=== PATIENT | female | born 1950 | race Caucasian/White ===

== ENCOUNTER 2016-04-13 10:38 | Inpatient (IN) | payer BC, MEDICARE ==
[~2016-04-13] VITALS: Ht 157.5 cm; Wt 59.0 kg
[~2016-04-13 10:38] MED LIST: MELO-109 PO
[2016-04-15 17:40] VITALS: BMI 23.8
[2016-04-18] VITALS (23 sets, daily range): BP systolic 101–134; BP diastolic 46–71; PULSE 88–109; RESP 11–59; Ht 157.5 cm; Wt 59.0 kg
[2016-04-18] MEDS ORDERED: GLUC-137 PO (11:46)
[2016-04-18] MEDS ORDERED: CALC-176 PO (11:46)
[2016-04-18] MEDS ORDERED: UBID1CAP25 PO (11:46)
[2016-04-18] MEDS ORDERED: MULT-853 PO (11:46)
[2016-04-18] MEDS ORDERED: OMEG300C3 PO (11:46)
[2016-04-18] MEDS ORDERED: FENTAnyl 50 MCG/ML VIAL ONE (12:00)
[2016-04-18] MEDS ORDERED: MIDAZOLAM 1 MG/ML 2 ML INJ ONE (12:00)
[2016-04-18] MEDS ORDERED: BUPIVACAINE 0.25%/EPI (SDV) 30 ML INJ ONE (12:01)
[2016-04-18] MEDS ORDERED: ROPIVACAINE 0.5 % 30 ML VIAL ONE ×2 (12:01→15:29)
[2016-04-18] MEDS ORDERED: POLYMYXIN/BACITRACIN 1L IRRIG ONE ×2 (12:08→15:29)
[2016-04-18] MEDS ORDERED: hydrALAzine 20 MG INJ ONE (13:05)
[2016-04-18] MEDS ORDERED: morphine 10 MG INJ ONE ×2 (13:05→16:25)
[2016-04-18] MEDS ORDERED: HYDROmorphONE (0.2 MG/ML) 10ML SYG IV PRN ×2 (13:30)
[2016-04-18] MEDS ORDERED: METOCLOPRAMIDE 10 MG INJ IV PRN (13:30)
[2016-04-18] MEDS ORDERED: MEPERIDINE 25 MG INJ IV PRN (13:30)
[2016-04-18] MEDS ORDERED: ONDANSETRON 4 MG INJ IV PRN ×2 (13:30→17:00)
[2016-04-18] MEDS ORDERED: FENTAnyl 50 MCG/ML VIAL IV PRN (13:30)
[2016-04-18] MEDS ORDERED: DIPHENHYDRAMINE 50 MG INJ IV PRN (13:30)
[2016-04-18] MEDS ORDERED: NALOXONE (0.4 MG/ML) INJ IV PRN (13:30)
[2016-04-18] MEDS ORDERED: POVIDONE IODINE 10% 28.4 GM OINT ONE (15:29)
[2016-04-18] MEDS ORDERED: ONDANSETRON 4 MG INJ ONE (16:07)
[2016-04-18] MEDS ORDERED: KETOROLAC 30 MG INJ ONE (16:08)
[2016-04-18] MEDS ORDERED: LIDOCAINE 2% (SDV) 5 ML INJ ONE (16:09)
[2016-04-18] MEDS ORDERED: PROPOFOL 20 ML ONE (16:09)
[2016-04-18] MEDS ORDERED: ROCURONIUM 50 MG INJ ONE (16:09)
--- NOTE | 2016-04-18 16:40 | OPPN ---
Date/Time of Note Date/Time of Note DATE: 04/18/16 TIME: 16:38 Operative/Procedure Note Pre-Operative Diagnosis right distal tibial pilon and distal fibula fracture Post-Operative Diagnosis right distal tibial pilon and distal fibula fracture Procedure ORIF right distal tibial pilon and distal fibula fracture with allograft Use of fluoroscopy Application of short leg cast Surgeon: JULES HINOJOSA MD [employer]: JYOTI SANTOS MD Anesthesiologist: FREIDA HAWKINS MD Implants/Grafts Allograft and Winifred Vitoss with bioactive glass Estimated blood loss: 10 - 50 ml's Drains: Not applicable Specimens: Not Applicable Complications: None Anesthesia type: regional (general Plus popliteal and adductor regional block) JULES HINOJOSA MD Apr 18, 2016 16:40
[2016-04-18] MEDS ORDERED: CEFAZOLIN 1 GM INJ IV SCH (17:00)
[2016-04-18] MEDS ORDERED: DIPHENHYDRAMINE 25 MG CAP PO PRN (17:00)
[2016-04-18] MEDS ORDERED: morphine 10 MG INJ IV PRN (17:00)
[2016-04-18] MEDS ORDERED: OXYCODONE/ACETAMINOPHEN (5/325) TAB PO PRN (17:00)
--- NOTE | 2016-04-18 17:33 | RADRPT ---
PROCEDURE: Intraoperative imaging of the right ankle with fluoroscopy. CLINICAL INDICATION: Right ankle pain. Intraoperative. TECHNIQUE: 10 images of the right ankle were obtained in the operating room with an image intensif ier. No radiologist was in attendance. 1.1 minutes of fluoroscopy time was used. COMPARISON: No prior study is available for comparison. FINDINGS: Images demonstrate open reduction and internal fixation of the distal tibia with 2 plates and multip le screws. There is also open reduction and internal fixation of the distal fibula with a lateral p late and multiple screws. IMPRESSION: 1. Intraoperative imaging of the right ankle. RPTAT: QQ .Rinku Paredes MD, MD Date Time Electronically viewed and signed by .Rinku Paredes MD, MD on 04/18/2016 17:33 .R/
[2016-04-18] MEDS: morphine 1 MG/ML 30 ML (PCA) IV SCH (17:54)
[2016-04-18] MEDS: CEFAZOLIN 1 GM/50 ML (PMX) 50 ML IVPB SCH (18:02)
[2016-04-18 19:25] LABS: BASOPHILS % 0.2 % (0.0-2.0); EOSINOPHILS % 0.1 % (0.0-7.0); HEMATOCRIT 30.9 % (37.0-47.0); HEMOGLOBIN 10.3 g/dl (12.0-16.0); LYMPHOCYTES # 0.5 10^3/ul (0.8-2.9); LYMPHOCYTES % 7.2 % (15.0-51.0); MEAN CORPUSCULAR HEMOGLOBIN 28.7 pg (29.0-33.0); MEAN CORPUSCULAR HGB CONC 33.5 g/dl (32.0-37.0); MEAN CORPUSCULAR VOLUME 85.9 fl (82.0-101.0); MEAN PLATELET VOLUME 8.2 fl (7.4-10.4); MONOCYTE # 0.5 10^3/ul (0.3-0.9); MONOCYTES % 7.3 % (0.0-11.0); NEUTROPHIL # 6.3 10^3/ul (1.6-7.5); NEUTROPHILS % 85.2 % (39.0-77.0); PLATELET COUNT 259 10^3/UL (140-440); RED BLOOD COUNT 3.59 10^6/ul (4.20-5.40); RED CELL DISTRIBUTION WIDTH 14.1 % (11.5-14.5); UNCORRECTED WBC 7.4 10^3/ul (4.8-10.8); WHITE BLOOD COUNT 7.4 10^3/ul (4.8-10.8)
[2016-04-18 19:29] LABS: CONDITION 1
[2016-04-18 19:35] LABS: ALBUMIN 3.5 g/dl (3.3-4.9); CHLORIDE 101 mmol/L (97-110); POTASSIUM 3.7 mmol/L (3.5-5.1); SODIUM 142 mmol/L (135-144)
[2016-04-18 19:37] LABS: ANION GAP 17 (8-16); ASPARTATE AMINO TRANSFERASE 22 IU/L (15-46); BILIRUBIN,INDIRECT 0.1 mg/dl (0-1.1); BILIRUBIN,TOTAL 0.1 mg/dl (0.2-1.3); CARBON DIOXIDE 28 mmol/L (21-31); CREATININE 0.59 mg/dl (0.44-1.00)
[2016-04-18 19:38] LABS: ALANINE AMINOTRANSFERASE 24 IU/L (13-69); ALBUMIN/GLOBULIN RATIO 1.29; ALKALINE PHOSPHATASE 108 IU/L (42-121); BLOOD UREA NITROGEN 21 mg/dl (7-20); CALCIUM 8.8 mg/dl (8.4-10.2); GLUCOSE 139 mg/dl (70-220); TOTAL PROTEIN 6.2 g/dl (6.1-8.1)
[2016-04-19 00:21] VITALS: BP 117/60; RESP 20
[2016-04-19] MEDS: CEFAZOLIN 1 GM/50 ML (PMX) 50 ML IVPB SCH ×3 (02:03→17:14)
[2016-04-19 04:45] VITALS: BP 119/64; PULSE 95
[2016-04-19] MEDS: morphine 1 MG/ML 30 ML (PCA) IV SCH (06:22)
[2016-04-19] MEDS ORDERED: oxyCODONE 5 MG TAB PO PRN (07:00)
[2016-04-19] MEDS ORDERED: ACETAMINOPHEN 325 MG TAB PO PRN (07:00)
--- NOTE | 2016-04-19 07:08 | PN ---
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 No f/v/c/n Denies numbness or tingling Constitutional: improved Feeding: advancing diet Pain Control: well controlled Exam/Review of Systems Vital Signs Vitals Vital Signs Date Time Temp Pulse Resp B/P Pulse Ox O2 Delivery O2 Flow Rate FiO2 04/19/16 04:49 17 04/19/16 04:45 98.0 95 119/64 99 Nasal Cannula 2.0 Intake and Output 04/18/16 04/18/16 04/19/16 15:00 23:00 07:00 Intake Total 1200 ml 350 ml Output Total 100 ml 400 ml Balance 1100 ml -50 ml Exam Constitutional: alert, oriented, well developed Psych: nl mood/affect, no complaints Musculoskeletal: other (RLE/ cast intact, toes wiggle silt to exposed toes. able to fit one to finger around border of the cast prox and distal) Results Result Diagram: 04/18/16184104/18/161841 JULES HINOJOSA MD Apr 19, 2016 07:08
--- NOTE | 2016-04-19 07:37 | CONS ---
DATE OF ADMISSION: 04/19/2016 DATE OF CONSULTATION: 04/19/2016 TIME SEEN: 3 a.m. HISTORY OF PRESENT ILLNESS: The patient is a 65-year-old female with a history of right knee osteoa rthritis status post total knee arthroplasty in 2012 who unfortunately had a right distal tibia and fibula fracture after a skiing accident and already underwent ORIF with allograft. A consultation w as placed for medical management. Except for the intermittent pain, overall the patient is feeling well. Denied any chest pain, shortness of breath, nausea, vomiting, fever or chills. Except for ta chycardia which has been getting better, vitals have been stable. Laboratory value shows a hemoglob in of 10.3 which is actually better than the previous record that we have here. REVIEW OF SYSTEMS: Negative except as mentioned in HPI. PAST MEDICAL HISTORY: As per HPI. PAST SURGICAL HISTORY: As per HPI. SOCIAL HISTORY: Denied history of tobacco, alcohol, or illicit drug use. ALLERGIES: NO KNOWN DRUG ALLERGIES. HOME MEDICATIONS: 1. Meloxicam. 2. Calcium. 3. Glucosamine/chondroitin. 4. Centrum Silver Woman. 5. Guin 3 fatty acid. 6. CoQ10. PHYSICAL EXAMINATION: VITAL SIGNS: Blood pressure 117/60, heart rate 102, respiratory rate 20, temperature 99.5, oxygen s aturation 97% on 2 liters. GENERAL: Sleepy but arousable. No acute distress. HEENT: No obvious head deformity. Pupils reactive to light. Extraocular muscles intact. CARDIOVASCULAR: Tachycardic with regular rhythm. LUNGS: Clear. ABDOMEN: Soft, nontender, nondistended. Positive bowel sounds. EXTREMITIES: Right lower extremity surgical site is covered. LABORATORY DATA: Hemoglobin 10.3, BUN 21. Otherwise, CBC and CMP within normal limits. IMPRESSION: 1. Right distal tibia and fibula fracture, status post open reduction internal fixation. 2. History of right knee osteoarthritis, status post total knee arthroplasty in 2012. 3. Normocytic anemia, likely a combination of chronic disease and possible iron deficiency PLAN: Continue pain management with adjustment as needed. When cleared by surgery will have physic al therapy. As far as her anemia is concerned, it is actually better than the previous record that we have and currently patient takes iron as part of her Centrum Silver. This can be addressed by [facility] primary care doctor as far as checking her iron profile is concerned. Further workup and management will be per clinical course. Dictated By: JOHN SELLERS/ACE Conf#: [id number] DID#: [id number]
[2016-04-19 08:05] VITALS: BP 119/60; RESP 16
[2016-04-19] MEDS: oxyCODONE 5 MG TAB PO PRN ×4 (09:23→21:00)
--- NOTE | 2016-04-19 15:08 | HP ---
Date/Time of Note Date/Time of Note DATE: 04/19/16 TIME: 14:56 Assessment/Plan VTE Prophylaxis VTE Prophylaxis Intervention: other (xarelto) Lines/Catheters IV Catheter Type (from Nrs): Peripheral IV Assessment/Plan Assessment/Plan 1. Right distal tibia and fibula fracture, status post open reduction internal fixation, 04/18/2016, stable, NWB on RLE, follow up with PT/ortho 2. History of right knee osteoarthritis, status post total knee arthroplasty in 2012. 3. Normocytic anemia, mild, follow up with CBC HPI/ROS Admit Date/Time Admit Date/Time Apr 19, 2016 at 07:01 Hx of Present Illness he patient is a 65-year-old female with a history of right knee osteoarthritis status post total knee arthroplasty in 2012 who unfortunately had a right distal tibia and fibula fracture after a skiing accident. She got ORIF with allograft on 04/19/2016, without complication. She has pain on right leg. Some nausea but no vomiting. ROS Constitutional: nausea, No chills, No diaphoresis, No disoriented, No fatigue, No febrile, No poor po , No weight change Eyes: No discharge, No pain, No redness, No visual change ENT: No bleeding, No congestion, No discharge, No dysphagia, No pain, No sore throat Respiratory: No cough, No pain, No pleuritic pain, No shortness of breath, No sputum, No wheezing Cardiovascular: No chest pain, No edema, No lightheadedness, No orthopenea, No palpitations, No paroxysmal nocturnal dyspnea Gastrointestinal: No blood, No constipation, No decreased appetite, No diarrhea , No flatus, No nausea, No pain, No passing stool, No vomiting Genitourinary: other, No bleeding, No discharge, No dysuria, No flank pain, No hematuria Musculoskeletal: other (right leg pain) Neurologic: No confusion, No dizziness, No focal-weakness, No headache, No seizure, No syncope Endocrine: No dry skin, No polydypsia, No polyuria, No temp intolerance, No weight change Lymphatic: No adenopathy, No lymphadema, No tender nodes Psychological: nl mood/affect, no complaints, No anxiety, No confusion, No depression, No other, No suicidal Immunologic: no complaints PMH/Family/Social Past Medical History Medical History: other (osteoarthritis) Past Surgical History Past Surgical Hx: other (right knee replacement) Social History Alcohol Use: none Smoking Status: Former smoker Drug Use: none Exam/Review of Systems Vital Signs Vitals Vital Signs Date Time Temp Pulse Resp B/P Pulse Ox O2 Delivery O2 Flow Rate FiO2 04/19/16 11:46 98.5 04/19/16 08:05 88 16 119/60 98 04/19/16 08:00 2.0 04/19/16 04:45 Nasal Cannula Intake and Output 04/18/16 04/18/16 04/19/16 15:00 23:00 07:00 Intake Total 1200 ml 350 ml Output Total 100 ml 400 ml Balance 1100 ml -50 ml Exam Constitutional: alert, oriented, well developed Psych: nl mood/affect, no complaints Head: atraumatic, normocephalic Eyes: EOMI, nl conjunctiva, nl lids, nl sclera ENMT: mucosa pink and moist, nl external ears & nose, nl lips & teeth, nl nasal mucosa & septum Neck: non-tender, supple Respiratory: clear to auscultation, normal air movement, other, No congested cough, No crackles/rales, No diminished breath sounds, No intercostal retraction, No labored breathing, No respirations, No tactile fremitus, No wheezing Cardiovascular: nl pulses, regular rate and rhythm, No S3, No S4, No bruits, No diastolic murmur, No edema, No gallop, No irregular rhythm, No jugular venous distention (JVD), No murmurs/extra sounds, No rub, No systolic murmur Gastrointestinal: bowel sounds, nl liver, spleen, soft, No ascites, No distended, No firm, No hepatomegaly, No mass, No non-tender, No rebound or guarding, No splenomegaly, No surgical scars, No tender Extremities: normal pulses, other (right lower extremity surgery, pain) 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, nl mental status, nl speech, nl strength Skin: nl turgor Lymph: nl lymph nodes Labs Result Diagram: 04/18/16184104/18/161841 Medications Medications Current Medications Naloxone HCl (Narcan) 0.2 mg Q2M PRN IV FOR RESP RATE 8 OR LESS; Start at 13:30 Morphine Sulfate (morphine) 5 mg Q4H PRN IV PAIN LEVEL 7-10; Start 04/18/16 at 17:00 Ondansetron HCl (Zofran Inj) 4 mg Q4H PRN IV NAUSEA AND/OR VOMITING Last administered on 04/19/16 09:37; Admin Dose 4 MG; Start 04/18/16 at 17:00 Diphenhydramine HCl 25 mg 25 mg Q4H PRN PO ITCHING; Start 04/18/16 at 17:00 Cefazolin Sodium (Ancef 1 Gm/50 ml (Pmx)) 50 ml @ 100 mls/hr Q8H IVPB Last administered on 04/19/16 09:24; Admin Dose 100 MLS/HR; Start 04/18/16 at 18:00 ; Stop 04/20/16 at 10:29 Acetaminophen (Tylenol Tab) 325 mg Q6H PRN PO PAIN AND OR ELEVATED TEMP Last administered on 04/19/16 09:23; Admin Dose 325 MG; Start 04/19/16 at 07:00 Oxycodone HCl (Roxicodone) 5 mg Q4H PRN PO PAIN Last administered on 04/19/16 12:42; Admin Dose 5 MG; Start 04/19/16 at 07:30 Oxycodone HCl (Roxicodone) 10 mg Q4H PRN PO PAIN; Start 04/19/16 at 13:00 CRISTIANE GARCIA MD Apr 19, 2016 15:07
[2016-04-19] MEDS: RIVAROXABAN 10 MG TABLET PO SCH (17:14)
[2016-04-19 19:57] VITALS: BP 139/68; RESP 19
[2016-04-20] MEDS: oxyCODONE 5 MG TAB PO PRN ×6 (01:01→22:22)
[2016-04-20] MEDS: CEFAZOLIN 1 GM/50 ML (PMX) 50 ML IVPB SCH ×2 (01:56→09:13)
[2016-04-20 05:26] LABS: BASOPHILS % 0.2 % (0.0-2.0); HEMATOCRIT 27.6 % (37.0-47.0); HEMOGLOBIN 9.5 g/dl (12.0-16.0); LYMPHOCYTES # 0.6 10^3/ul (0.8-2.9); LYMPHOCYTES % 7.9 % (15.0-51.0); MEAN CORPUSCULAR HEMOGLOBIN 29.4 pg (29.0-33.0); MEAN CORPUSCULAR HGB CONC 34.5 g/dl (32.0-37.0); MEAN CORPUSCULAR VOLUME 85.1 fl (82.0-101.0); MEAN PLATELET VOLUME 8.5 fl (7.4-10.4); MONOCYTE # 0.7 10^3/ul (0.3-0.9); MONOCYTES % 9.9 % (0.0-11.0); NEUTROPHIL # 6.2 10^3/ul (1.6-7.5); PLATELET COUNT 204 10^3/UL (140-440); RED BLOOD COUNT 3.24 10^6/ul (4.20-5.40); RED CELL DISTRIBUTION WIDTH 13.7 % (11.5-14.5); UNCORRECTED WBC 7.6 10^3/ul (4.8-10.8); WHITE BLOOD COUNT 7.6 10^3/ul (4.8-10.8)
[2016-04-20 05:56] LABS: CONDITION 1
--- NOTE | 2016-04-20 06:59 | PN ---
Date/Time of Note Date/Time of Note DATE: 04/20/16 TIME: 06:56 Assessment/Plan Lines/Catheters IV Catheter Type (from Nrsg): Peripheral IV Lloyd in Place (from Nrsg): No Assessment/Plan Assessment/Plan POD#2 s/p right ankle distal tibial pilon and distal fibular ORIF - NWB to the RLE - xarelto, scds teds - PO pain control - pt to GT - Reg diet - Likely to dc home today after PT ---- Allie Hinojosa MD [facility] Subjective 24 Hr Interval Summary Doing better. 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 Still feeling unsteady with walker. Constitutional: no complaints Feeding: advancing diet Pain Control: well controlled Exam/Review of Systems Vital Signs Vitals Vital Signs Date Time Temp Pulse Resp B/P Pulse Ox O2 Delivery O2 Flow Rate FiO2 04/19/16 19:57 99.1 84 19 139/68 96 04/19/16 08:00 2.0 04/19/16 04:45 Nasal Cannula Intake and Output 04/19/16 04/19/16 04/20/16 15:00 23:00 07:00 Intake Total 50 ml 810 ml 350 ml Output Total 1000 ml 1600 ml Balance 50 ml -190 ml -1250 ml Exam Constitutional: alert, oriented, well developed Psych: nl mood/affect, no complaints Musculoskeletal: other (rle/ splint intact, toes wiggle, silt to the exposed toes, swelling decreased) Results Result Diagram: 04/20/16 0432 04/18/16 1842 JULES HINOJOSA MD Apr 20, 2016 06:59
[2016-04-20 07:00] VITALS: BP 143/63; RESP 19
--- NOTE | 2016-04-20 07:00 | DS ---
Date/Time of Note Date/Time of Note DATE: 04/20/16 TIME: 06:59 Discharge Summary Admission/Discharge Info Admit Date/Time Apr 19, 2016 at 07:01 Discharge Date/Time 04/20/16 Final Diagnosis right ankle distal tibial pilon and distal fibular Patient Condition: Good Consults Hospitalist Procedures right ankle distal tibial pilon and distal fibular ORIF Hx of Present Illness The patient is a 65-year-old female with a history of right knee osteoarthritis status post total knee arthroplasty in 2012 who unfortunately had a right distal tibia and fibula fracture after a skiing accident. She had aright ankle distal tibial pilon and distal fibular ORIF with allograft on 04/19/2016, without complication. She has pain on right leg. Some nausea but no vomiting. NVI on day of discharge with pain controlled. Hospital Course The patient is a 65-year-old female with a history of right knee osteoarthritis status post total knee arthroplasty in 2012 who unfortunately had a right distal tibia and fibula fracture after a skiing accident. She had aright ankle distal tibial pilon and distal fibular ORIF with allograft on 04/19/2016, without complication. She has pain on right leg. Some nausea but no vomiting. NVI on day of discharge with pain controlled. Home Meds Reported Medications Calcium Cmb 2-Mag Cmb 12-Vit D3 (Calcium 500) 1 Each Tablet, 1 TAB PO, TAB 04/18/16 Ubidecarenone/Vit E Acetate (CO Q-10 100 MG SOFTGEL) 1 Each Capsule, 1 EACH PO, CAP 04/18/16 Glucosamine/Msm/Chondroitin A (TRIPLE FLEX CAPLET) 1 Each Tablet, 1 EACH PO, TAB 04/18/16 [place]-3 Fatty Acids (Fish Oil) 300 Mg Capsule, 300 MG PO, CAP 04/18/16 Multivits-Min/Iron/FA/Lutein (Centrum Silver Women Tablet) 1 Each Tablet, 1 EACH PO, TAB 04/18/16 Meloxicam* (Meloxicam*) 7.5 Mg Tablet, 7.5 MG PO DAILY 01/22/13 Follow-up Plan [place] [facility] [place] Hinojosa P[place] Labs Laboratory Tests Test 04/20/16 04:32 Basophils # 0.010^3/ul (0.0-0.1) Basophils % 0.2% (0.0-2.0) Eosinophils # 0.010^3/ul (0.0-0.5) Eosinophils % 0.0% (0.0-7.0) Hematocrit 27.6% (37.0-47.0) Hemoglobin 9.5g/dl (12.0-16.0) Lymphocytes # 0.610^3/ul (0.8-2.9) Lymphocytes % 7.9% (15.0-51.0) Mean Corpuscular Hemoglobin 29.4pg (29.0-33.0) Mean Corpuscular Hemoglobin Concent 34.5g/dl (32.0-37.0) Mean Corpuscular Volume 85.1fl (82.0-101.0) Mean Platelet Volume 8.5fl (7.4-10.4) Monocytes # 0.710^3/ul (0.3-0.9) Monocytes % 9.9% (0.0-11.0) Neutrophils # 6.210^3/ul (1.6-7.5) Neutrophils % 82.0% (39.0-77.0) Nucleated Red Blood Cells # 0.010^3/ul (0.0-0.0) Nucleated Red Blood Cells % 0.0/100WBC (0.0-0.0) Platelet Count 76292^3/UL (140-440) Red Blood Count 3.2410^6/ul (4.20-5.40) Red Cell Distribution Width 13.7% (11.5-14.5) White Blood Count 7.610^3/ul (4.8-10.8) BARRETT HINOJOSA MD Apr 20, 2016 07:00
--- NOTE | 2016-04-20 07:01 | PDOCDIS ---
Discharge Instructions CONDITION Patient Condition: Good HOME CARE INSTRUCTIONS: Diet Instructions: RegularSpecial Diet: REGULAR ACTIVITY: Activity Restrictions: Avoid heavy lifting Do not Drive Do not operate Machinery Do not operate Power Tool Avoid Heavy Housework Keep Limb Elevated No Weight Bearing JULES HINOJOSA MD Apr 20, 2016 07:01
--- NOTE | 2016-04-20 14:24 | PN ---
Date/Time of Note Date/Time of Note DATE: 04/20/16 TIME: 14:22 Assessment/Plan VTE Prophylaxis VTE Prophylaxis Intervention: other (xarelto) Lines/Catheters IV Catheter Type (from [facility]): Peripheral IV Urinary Cath still in place: No Assessment/Plan Assessment/Plan 1. Right distal tibia and fibula fracture, status post open reduction internal fixation, 04/18/2016, stable, NWB on RLE, follow up with PT/ortho 2. History of right knee osteoarthritis, status post total knee arthroplasty in 2012. 3. Normocytic anemia, will start iron supplement on discharge Subjective 24 Hr Interval Summary Free Text/Dictation pain on right ankle Exam/Review of Systems Vital Signs Vitals Vital Signs Date Time Temp Pulse Resp B/P Pulse Ox O2 Delivery O2 Flow Rate FiO2 04/20/16 07:00 98.9 89 19 143/63 97 04/19/16 08:00 2.0 04/19/16 04:45 Nasal Cannula Intake and Output 04/19/16 04/19/16 04/20/16 14:59 22:59 06:59 Intake Total 50 ml 810 ml 350 ml Output Total 1000 ml 1600 ml Balance 50 ml -190 ml -1250 ml Exam Constitutional: alert, oriented, well developed Psych: nl mood/affect, no complaints Head: atraumatic, normocephalic Eyes: EOMI, nl conjunctiva, nl lids, nl sclera ENMT: mucosa pink and moist, nl external ears & nose, nl lips & teeth, nl nasal mucosa & septum Neck: non-tender, supple Respiratory: clear to auscultation, normal air movement, No congested cough, No crackles/rales, No diminished breath sounds, No intercostal retraction, No labored breathing, No respirations, No tactile fremitus, No wheezing Cardiovascular: nl pulses, other, regular rate and rhythm, No S3, No S4, No bruits, No diastolic murmur, No edema, No gallop, No irregular rhythm, No jugular venous distention (JVD), No murmurs/extra sounds, No rub, No systolic murmur Gastrointestinal: nl liver, spleen, non-tender, soft, No ascites, No bowel sounds, No distended, No firm, No hepatomegaly, No mass , No rebound or guarding, No splenomegaly, No surgical scars, No tender Extremities: normal pulses, other (right foot in cast, normal clor in toes) 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, nl mental status, nl speech, nl strength Skin: nl turgor, rash or lesions Lymph: nl lymph nodes Results Result Diagram: 04/20/16 0432 04/18/16 1842 Results 24 hrs Laboratory Tests Test 04/20/16 04:32 Basophils # 0.0 Basophils % 0.2 Eosinophils # 0.0 Eosinophils % 0.0 Hematocrit 27.6 L Hemoglobin 9.5 L Lymphocytes # 0.6 L Lymphocytes % 7.9 L Mean Corpuscular Hemoglobin 29.4 Mean Corpuscular Hemoglobin Concent 34.5 Mean Corpuscular Volume 85.1 Mean Platelet Volume 8.5 Monocytes # 0.7 Monocytes % 9.9 Neutrophils # 6.2 Neutrophils % 82.0 H Nucleated Red Blood Cells # 0.0 Nucleated Red Blood Cells % 0.0 Platelet Count 204 # Red Blood Count 3.24 L Red Cell Distribution Width 13.7 White Blood Count 7.6 Medications Medications Current Medications Naloxone HCl (Narcan) 0.2 mg Q2M PRN IV FOR RESP RATE 8 OR LESS; Start at 13:30 Morphine Sulfate (morphine) 5 mg Q4H PRN IV PAIN LEVEL 7-10; Start 04/18/16 at 17:00 Ondansetron HCl (Zofran Inj) 4 mg Q4H PRN IV NAUSEA AND/OR VOMITING Last administered on 04/19/16 09:37; Admin Dose 4 MG; Start 04/18/16 at 17:00 Diphenhydramine HCl (Benadryl) 25 mg Q4H PRN PO ITCHING; Start 04/18/16 at 17: 00 Acetaminophen (Tylenol Tab) 325 mg Q6H PRN PO PAIN AND OR ELEVATED TEMP Last administered on 04/19/16 09:23; Admin Dose 325 MG; Start 04/19/16 at 07:00 Oxycodone HCl (Roxicodone) 5 mg Q4H PRN PO PAIN Last administered on 04/19/16 12:42; Admin Dose 5 MG; Start 04/19/16 at 07:30 Oxycodone HCl (Roxicodone) 10 mg Q4H PRN PO PAIN Last administered on 1/18/ 17at 13:30; Admin Dose 10 MG; Start 04/19/16 at 13:00 CRISTIANE GARCIA MD Apr 20, 2016 14:24
[2016-04-20] MEDS: RIVAROXABAN 10 MG TABLET PO SCH (17:56)
--- NOTE | 2016-04-20 18:50 | OPR ---
DATE OF OPERATION: 04/18/2016 SURGEON: Jules Chatman M.D. LAB AID SURGEON: Dr. Tasha Andrews. PREOPERATIVE DIAGNOSES: Right distal tibial pilon fracture and distal fibular fracture. POSTOPERATIVE DIAGNOSES: Right distal tibial pilon fracture and right distal fibular fracture. OPERATION PERFORMED: 1. Right distal tibial pilon open reduction, internal fixation. 2. Right distal fibula open reduction, internal fixation. 3. Application of short leg cast. 4. Use of fluoroscopy. 5. Application of Vitoss Bioactive Glass allograft to the tibia for tibial bone loss. TOURNIQUET TIME: 120 minutes at 250 mmHg. IMPLANTS: Winifred distal fibular plate and then multiple [place] distal tibial plates. ESTIMATED BLOOD LOSS: Minimal. INDICATIONS: The patient is a 65-year-old female status post injury while skiing with a distal tibial pilon fracture and distal fibular fracture. The patient was explained the risks and benefits of the surgery in the patient's pauma language including but not limited to infection, bleeding, loss of limb, loss of life, need for future surgery, risk of anesthesia, risk of arthritis, risk of DVT and risk of . The patient wished to proceed with surgery as indicated. OPERATIVE NOTE: The patient had the correct operative extremity marked in the preoperative holding area, confirmed with both consent and with patient. The patient was then brought back in the operative theater, given preoperative antibiotics and preoperative anesthesia and regional block anesthesia. The patient was then prepped and draped in the normal sterile fashion after a nonsterile tourniquet had been placed on the operative extremity. The patient was prepped and draped in normal sterile fashion. Time-out was taken. All parties in the room agreed correct extremity, correct procedure. Tourniquet was brought up to 250 mmHg. An incision was made over the using an anterolateral approach, incision was made using extraordinary care to avoid injury to the superficial peroneal nerve which was identified and mobilized and protected throughout the surgical procedure. The fascia over the anterior compartment of the distal tibia was then incised sharply and the extensor retinaculum was incised in the anterior compartment tendons were all retracted medially. An anterior lateral distal tibial plate was prepared to be placed over the tibia. The plate was slid submuscularly along the lateral cortex of the tibia deep to the anterior muscles. Fracture had been shown to be well reduced at this point and distal screw insertion was begun and screws were shown to be correctly placed to avoid any injury to the joint. The articular segment was further reduced and length alignment and rotation was assessed to show excellent position. The remaining proximal screws were then placed under percutaneous fixation. Attention was then turned to the medial aspect of the tibia where incision was made directly medially and using an anti-glide fashion plate the buttress plate was placed and lag screws rupture fragment to achieve interfragmentary compression. Given the extensive bone loss due to the osteoporotic bone we had to place Winifred bioactive allograft mixed with cancellus chips to the area of the bone loss to provide structural integrity and support. Incision was made over the distal fibula to obtain length, alignment, and rotation, and there was noted to be a significantly comminuted distal fibula fragment. After the comminution was debrided and the fracture was reduced, a distal fibular one-third tubular plate was then placed over the fracture, the fibula length was then achieved and shown to be adequately reduced in both AP and lateral positions. the fibula was then fixed using a bridging plate with 3screws proximally and distally, At this point the ankle mortise was shown to be well reduced in AP, mortise, and lateral positions, and all wounds were irrigated thoroughly and closed with 2-0 Vicryl followed by 3-0 Monocryl followed by 3-0 nylon and 4-0 nylon. Wounds were then dressed with 4 x 4's, ABDs, Xeroform, and Betadine ointment. PAtient was placed in a well-padded short leg splint. The patient was then taken to the PACU in stable condition. All sponge and needle counts were correct. LAB AID NOTE: An orthopedic surgeon glass ribbon machine operator assistant was needed for this case due to complexity of this case. Refractive Surgeon performed retraction and alignment of the fracture and held the foot in the proper position while the fracture was reduced and drilling occurred. Without an orthopedic surgeon who is an expert in surgery assisting in this case, the case would have been a lot longer and more complex. Thus, it should be compensated accordingly. MODIFIER 22: This should be a modifier 22 case given the complexity of this case and nature of a distal pilon fracture with interarticular extension and with the changes in anatomy and length of time associated with this and the complexity of this surgery and thus should be compensated accordingly. Dictated By: JULES HUFF/ACE Conf#: [id number] DID#: [id number] MTDD
[2016-04-20 19:06] VITALS: BP 120/57; RESP 20
[2016-04-21] MEDS: oxyCODONE 5 MG TAB PO PRN ×2 (03:19→10:08)
--- NOTE | 2016-04-21 07:44 | PN ---
Date/Time of Note Date/Time of Note DATE: 04/21/16 TIME: 07:43 Assessment/Plan Lines/Catheters IV Catheter Type (from Nrsg): Saline Lock Lloyd in Place (from Nrsg): No Assessment/Plan Assessment/Plan POD# 3 s/p right ankle distal tibial pilon and distal fibular ORIF - NWB to the RLE - xarelto, scds teds - PO pain control - pt to GT - Reg diet - Likely to dc home today after PT ---- Allie Hinojosa MD [facility] Subjective 24 Hr Interval Summary dOING WELL. Pain is much better controlled today. Constitutional: no complaints Feeding: advancing diet Pain Control: well controlled Exam/Review of Systems Vital Signs Vitals Vital Signs Date Time Temp Pulse Resp B/P Pulse Ox O2 Delivery O2 Flow Rate FiO2 04/21/16 08:17 99.0 81 18 143/71 96 04/19/16 08:00 2.0 04/19/16 04:45 Nasal Cannula Intake and Output 04/20/16 04/20/16 04/21/16 15:00 23:00 07:00 Intake Total 50 ml 700 ml Output Total 850 ml Balance 50 ml -150 ml Exam Constitutional: alert, oriented, well developed Musculoskeletal: other (rle/toes wp, wiggle, silt to exposed toes) Results Result Diagram: 04/20/16 0432 04/18/16 1842 JULES HINOJOSA MD Apr 21, 2016 07:44
[2016-04-21 08:17] VITALS: BP 143/71; RESP 18
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
[2016-04-22 07:24] VITALS: BP 105/50; RESP 66
== END 2016-04-21 11:35 | disposition home or self-care (01) | DRG 494 ==
LOC: INTOOBSV 04-18 09:58 → REC 04-18 09:58 → MS1 04-18 18:53 → OBSVTOIN 04-19 07:01
PROVIDERS: ADMIT Orthopaedic Surgery; ATTEND Orthopaedic Surgery
PROC: 0QSG04Z Reposition Right Tibia with Internal Fixation Device, Open Approach (ICD-10-PCS; 2016-04-18)
PROC: 0QSJ04Z Reposition Right Fibula with Internal Fixation Device, Open Approach (ICD-10-PCS; principal; 2016-04-18 12:00)
DX: S82.491A Other fracture of shaft of right fibula, initial encounter for closed fracture (principal); D64.9 Anemia, unspecified; S82.871A Displaced pilon fracture of right tibia, initial encounter for closed fracture; Z96.651 Presence of right artificial knee joint; Y93.23 Activity, snow (alpine) (downhill) skiing, snowboarding, sledding, tobogganing and snow tubing; Y92.89 Other specified places as the place of occurrence of the external cause
CPT/HCPCS: 80053; 82306; 83970; 84439; 84443; 85025; 97116; 97162; 97530; 99217; C1713; C1762; G0378; J0360; J0690; J1885; J2250; J2270; J2405; J2795; J3010